=== PATIENT | male | born 1980 | race Two or more races ===

== ENCOUNTER 2018-01-16 08:58 | Emergency (ER) | payer OTHER ==
[~2018-01-16] VITALS: Ht 167.6 cm; Wt 83.9 kg
[2018-01-16 09:10] VITALS: BP 154/98
[2018-01-16] MEDS ORDERED: LET TOPICAL SOLN 5 ML TOP ONE (09:45)
[2018-01-16] MEDS ORDERED: LIDOCAINE 1% (LOCAL ANESTH.) PF 5ml SDV ID ONE (09:45)
[2018-01-16] MEDS ORDERED: ACETAMINOPHEN 500 MG TAB PO ONE (10:00)
[2018-01-16] MEDS ORDERED: BACITRACIN TOP OINT 1 UD PKG TOP ONE (11:30)
[2018-01-16] MEDS ORDERED: ceFAZolin IM 1GM/2.5ML STERILE WATER IM ONE (11:45)
== END 2018-01-16 12:05 | disposition home or self-care (01) ==
LOC: ER 08:58
DX: S01.312A Laceration without foreign body of left ear, initial encounter (principal); I10 Essential (primary) hypertension; Y04.0XXA Assault by unarmed brawl or fight, initial encounter; Y93.89 Activity, other specified; Y99.8 Other external cause status; Y92.148 Other place in prison as the place of occurrence of the external cause
CPT/HCPCS: 12013; 96372; 99283; J0690; J3490